=== PATIENT | female | born 1940 | race Caucasian/White ===

== ENCOUNTER → 2017-04-20 | Outpatient (CLI) | payer MEDICARE ==
[2014-09-04 14:49] VITALS: BP 125/73
[~2017-04-20] MED LIST: ALPR0.25 PO; ARFO15VI NEB; BUDESONIDE; CHOL10003 PO; FOLI1TAB16 PO; GUAI600T47 PO; METH2.5T PO; MONT10TA6 PO; ZITHROMAX; [UNRECOGNIZED DRUG - OTHER]
--- NOTE | 2017-04-20 13:48 | KCIC ---
EXAM: Cervical spine MRI without contrast. HISTORY: Neck pain. TECHNIQUE: Multiplanar, multisequence magnetic resonance imaging of the cervical spine was performed without contrast. COMPARISON: None. FINDINGS: There is mild anterolisthesis of C2 on C3, C4 on C5 and C7 on T1 and the upper thoracic vertebral levels. There is slight straightening of cervical lordosis. There is degenerative endplate remodeling with disc space narrowing and osteophytosis at all levels, primarily C5-C6. There are several endplate Schmorl's nodes. No suspicious osseous lesion is seen. There is no acute or subacute fracture. There is edema within the right C4-C5 facets, likely degenerative in etiology. No spinal cord lesion is seen. At C2-C3, there is a left posterior lateral predominant disc bulge and endplate remodeling. There is mild facet arthropathy. There is mild left foraminal stenosis. At C3-C4, there is a diffuse disc bulge and endplate osteophytosis. There is mild bilateral facet arthropathy. There is uncovertebral arthropathy. There is mild bilateral foraminal stenosis. At C4-C5, there is a disc bulge and endplate osteophytosis. There is mild right facet arthropathy. There is no stenosis. At C5-C6, there is a diffuse disc bulge and endplate osteophytosis. There is left greater than right uncovertebral arthropathy. There is moderate left foraminal stenosis. At C6-C7, there is a diffuse disc bulge and endplate osteophytosis. There is left greater than right uncovertebral arthropathy. There is severe left foraminal stenosis. IMPRESSION: 1. Multilevel degenerative change within the cervical spine, described in detail above. This results in mild left foraminal stenosis at C2-C3, mild bilateral foraminal stenosis at C3-C4, moderate left foraminal stenosis at C5-C6 and severe left foraminal stenosis at C6-C7. 2. Mild multilevel listhesis and slight reversal of cervical lordosis, described above. Electronically signed by: Jada Bell MD (04/20/2017 1:45 PM) [facility]1
--- NOTE | 2017-04-21 15:55 | KCIC ---
DATE: 04/20/2017 EXAM: MAMMO YAMILA SCREENING BILATERAL HISTORY: Asymptomatic screening mammogram. History of benign left breast biopsy in 2011. COMPARISON: Prior mammograms from 04/11/2016, 02/09/2015 and 02/07/2014 This study was interpreted with the benefit of Computerized Aided Detection (CAD). The breast parenchyma shows scattered fibroglandular densities. Breast parenchyma level B. FINDINGS: Bilateral CC and MLO views of the breasts were performed. Bilateral breast tomosynthesis was performed in CC and MLO projections. Right breast: There are no suspicious microcalcifications, masses or areas of architectural distortion. Left breast: There are no suspicious microcalcifications, masses or areas of architectural distortion. Findings are stable from prior mammogram. IMPRESSION: Negative bilateral 2D and 3-D mammogram. BI-RADS CATEGORY: 1 NEGATIVE RECOMMENDED FOLLOW-UP: 12M 12 MONTH FOLLOW-UP PQRS compliance statement: Patient information was entered into a reminder system with a target due date 04/20/2018 for the next mammogram. Mammography is a sensitive method for finding small breast cancers, but it does not detect them all and is not a substitute for careful clinical examination. A negative mammogram does not negate a clinically suspicious finding and should not result in delay in biopsying a clinically suspicious abnormality. "Our facility is accredited by the [employer] Mammography Program."
== END | disposition home or self-care (01) ==
LOC: KCIC MAMMO 12:06
PROVIDERS: ATTEND Family Medicine
DX: Z12.31 Encounter for screening mammogram for malignant neoplasm of breast (principal); M48.02 Spinal stenosis, cervical region; Z90.710 Acquired absence of both cervix and uterus; Z90.49 Acquired absence of other specified parts of digestive tract
CPT/HCPCS: 72141; 77063; G0202; 77067

== ENCOUNTER → 2017-06-15 | Outpatient (CLI) | payer MEDICARE ==
[2014-09-04 14:49] VITALS: BP 125/73
--- NOTE | 2017-06-15 14:52 | KCIC ---
MRI Brain without contrast History: Persistent vertigo, nausea Technique: Multiplanar, multisequential noncontrast MR imaging was performed of the brain. Contrast: None Comparison: None Findings: There is no evidence of recent infarct or cytotoxic edema. Ventricular size is proportionate to the sulcal spaces. There is mild supratentorial involutional change. There is no significant midline shift, intraaxial mass effect, or focal abnormal extra-axial fluid collection. There are a couple of tiny foci of T2 and FLAIR hyperintense abnormality of the supratentorial white matter bilaterally. There is no significant hemosiderin deposition of the brain parenchyma. There is preservation of the major intracranial flow-voids at the skull base. There is partially empty sella. The mastoid air cells are aerated. The cerebellar tonsils are normal in location. There is no significant abnormality of the pineal gland. There is mild bilateral ethmoid air cell and left maxillary sinus mucosal thickening. There is preserved marrow signal of the clivus. Impression: 1. There are a couple of tiny foci of nonspecific gliosis of the supratentorial parenchyma. There is mild supratentorial involutional change. Electronically signed by: Miguelangel Suazo MD (06/15/2017 2:48 PM) [facility]-KCIC1
== END | disposition home or self-care (01) ==
LOC: KCIC MRI 12:10
PROVIDERS: ATTEND Family Medicine
DX: G93.89 Other specified disorders of brain (principal); R42 Dizziness and giddiness; R11.0 Nausea
CPT/HCPCS: 70551

== ENCOUNTER → 2018-04-21 | Outpatient (CLI) | payer MEDICARE ==
[2018-01-15 11:00] VITALS: BP 120/61
[~2018-04-21] MED LIST changes: +ALBU2.5V5 NEB; +CETI10CA PO; +CHOL500016 PO; +MECL12.52 PO; +VENTOLIN HFA18 GM INH; +VITA400C36 PO
--- NOTE | 2018-04-22 18:02 | KCIC ---
Bilateral digital screening mammograms with 3D Tomosynthesis: Reason for examination: Routine screening. Comparison is made to previous studies dated 04/20/2017 and 04/11/2016. Bilateral mammograms in CC and oblique projections were obtained with 2-D imaging and 3-D tomosynthesis imaging on a Siemens Inspiration unit and reviewed on the workstation. Interpretation was made with the benefit of CAD. The skin and nipples show no abnormalities. No abnormal axillary lymph nodes are seen. The breast parenchyma shows scattered fibroglandular density. (Breast density: Category B.) There continue to be small nodular parenchymal densities at the posterior superior left breast probably at the 11:00 B position, at the 12:00 B position of the right breast and at the 10:00 B position of the right breast which are unchanged. There are no new dominant masses, suspicious calcifications or architectural distortions. Vascular calcifications are present bilaterally. Impression: No interval change in a small nodular densities seen bilaterally. No evidence of malignancy. Recommend routine screening. BI-RADS Category 2: Benign. "Our facility is accredited by the [employer] Mammography Program." This patient's information has been entered into a reminder system for the patient to be notified with the results of her examination and a target date for the next mammogram. Electronically signed by: Ana William MD (04/22/2018 6:00 PM) [id number]
== END | disposition home or self-care (01) ==
LOC: KCIC MAMMO 13:56
PROVIDERS: ATTEND Family Medicine
DX: Z12.31 Encounter for screening mammogram for malignant neoplasm of breast (principal)
CPT/HCPCS: 77063; 77067

== ENCOUNTER → 2018-06-25 | Outpatient (CLI) | payer MEDICARE ==
[2018-01-15 11:00] VITALS: BP 120/61
[~2018-06-25] MED LIST changes: +CONTRAST GIVEN. MC PRN; +IOHEXOL 300 MG/ML 100ML VIAL. IV ONE
--- NOTE | 2018-06-25 09:30 | KCIC ---
Examination: CT ANGIOGRAPHY CHEST History: Chest pain and tightness Comparison/Correlation: None Findings: Axial images of the chest were obtained without contrast. Sagittal and coronal reformatted images were divided. Exam was performed with pulmonary arteriography protocol. MIP images were provided. Pulmonary arterial vasculature is normal with no thromboembolic disease. Thoracic aorta is unremarkable although it is not as well opacified for purposes of this protocol. There are no suspicious findings of the thoracic aorta for the patient's age. Calcific involvement of the proximal left anterior descending and proximal circumflex coronary arteries is notable. There is no focal infiltrate. Linear scarring or atelectasis involving the right lower lobe is minimal. Calcification of the tracheal and bronchial sims noted. Fatty infiltration of the liver noted. Impression: No pulmonary arterial thromboembolic disease. No focal infiltrate. Electronically signed by: Shyam Tafoya MD (06/25/2018 9:26 AM) [id number]
== END | disposition home or self-care (01) ==
LOC: KCIC CT 08:32
PROVIDERS: ATTEND Family Medicine
DX: R07.89 Other chest pain (principal); K76.0 Fatty (change of) liver, not elsewhere classified
CPT/HCPCS: 71275; 82565; Q9967

== ENCOUNTER → 2018-07-26 | Outpatient (CLI) | payer MEDICARE ==
[2018-01-15 11:00] VITALS: BP 120/61
[~2018-07-26] MED LIST changes: -CONTRAST GIVEN. MC PRN; -IOHEXOL 300 MG/ML 100ML VIAL. IV ONE; +REGADENOSON 0.4 MG/5 ML DISP.SYRIN. IV ONE
--- NOTE | 2018-07-26 11:44 | CARD ---
MR#: [id number] Date of Study: 07/26/2018 Ordering Physician: MARILYNN PHIPPS, Referring Physician: MARILYNN PHIPPS Tech: Isadora Berrios RDCS APPROVED REPORT EXAM: Two-dimensional and M-mode echocardiogram with Doppler and color Doppler. Other Information Quality : Fair INDICATION Exertional Dyspnea 2D DIMENSIONS RVDd2.9 (2.9-3.5cm)Left Atrium(2D)2.7 (1.6-4.0cm) IVSd0.7 (0.7-1.1cm)Aortic Root(2D)3.3 (2.0-3.7cm) LVDd4.4 (3.9-5.9cm)LVOT Diameter2.0 (1.8-2.4cm) PWd0.8 (0.7-1.1cm)LVDs2.9 (2.5-4.0cm) FS (%) 33.9 %SV54.0 ml LVEF(%)63.1 (>50%) Aortic Valve AoV Peak Tico.137.5cm/sAoV VTI23.0cm AO Peak GR.7.6mmHgLVOT Peak Tico.129.6cm/s LVOT VTI 22.32cmAO Mean GR.5mmHg JANUARY (VMAX)3.29vn5AUS (VTI)3.12cm2 Mitral Valve MV E Liegypoi22.0cm/sMV DECEL YNHP797qj MV A Hgxszyrj365.6cm/sMV DSS600ob E/A Ratio0.5MVA (PHT)2.11cm2 TDI E/Lateral E'7.9E/Medial E'8.7 Tricuspid Valve TR P. Xmsruwwh816nt/sRAP HGZPZFAQ5zaZz TR Peak Gr.06mfXcXWFQ55mvQr Pulmonary Vein S1 Mfgsribb50.1cm/sD2 Jheiqbsn21.1cm/s LEFT VENTRICLE The left ventricle is normal size. There is normal left ventricular wall thickness. The left ventricu lar systolic function is normal and the ejection fraction is within normal range. The Ejection Fracti on is 60-65%. There is normal LV segmental wall motion. Transmitral Doppler flow pattern is Grade I-a bnormal relaxation pattern. RIGHT VENTRICLE The right ventricle is normal size. The right ventricular systolic function is normal. ATRIA The left atrium size is normal. The right atrium size is normal. The interatrial septum is intact wit h no evidence for an atrial septal defect or patent foramen ovale as noted on 2-D or Doppler imaging. AORTIC VALVE The aortic valve is calcified but opens well. Doppler and Color Flow revealed no significant aortic r egurgitation. There is no significant aortic valvular stenosis. MITRAL VALVE The mitral valve is calcified but opens well. Mitral annular calcification is mild. There is no evide nce of mitral valve prolapse. There is no mitral valve stenosis. Doppler and Color Flow revealed trac e mitral valve regurgitation. TRICUSPID VALVE The tricuspid valve is normal in structure and function. Doppler and Color Flow revealed mild tricusp id regurgitation. The PA pressure was estimated at 22 mmHg. There is no tricuspid valve stenosis. PULMONIC VALVE The pulmonic valve is not well visualized. Doppler and Color Flow revealed no pulmonic valvular regur gitation. There is no pulmonic valvular stenosis. GREAT VESSELS The aortic root is normal in size. The ascending aorta is normal in size. The IVC is normal in size a nd collapses >50% with inspiration. PERICARDIAL EFFUSION There is no evidence of significant pericardial effusion. Critical Notification Critical Value: No <Conclusion> The left ventricle is normal size. The left ventricular systolic function is normal and the ejection fraction is within normal range. The Ejection Fraction is 60-65%. There is no significant aortic valvular stenosis. Doppler and Color Flow revealed no significant aortic regurgitation. Doppler and Color Flow revealed trace mitral valve regurgitation. Doppler and Color Flow revealed mild tricuspid regurgitation. The PA pressure was estimated at 22 mmHg. Signed by : Ronald Mckay MD Electronically Approved : 07/26/2018 11:42:33
--- NOTE | 2018-07-26 14:18 | RAD ---
MR#: [id number] Date of Study: 07/26/2018 Ordering Physician: MARILYNN PHIPPS, Referring Physician: MARISELA WILKERSON Tech: ZAN Munroe, ARRT (R) (N) APPROVED REPORT Test Type: Pharmacological Stress Nurse/Tech: Shu Licona RN Test Indications: Previous pneumonia and EKG abnormalities Cardiac History: No known cardiac Medications: See Electronic Medical Record Medical History: See Electronic Medical Record Resting ECG: SB with BBB and PVCs Resting Heart Rate: 49 bpm Resting Blood Pressure: 135/82mmHg Pretest Chest Pain: No chest pain Nurse/Tech Notes S1,S2 and lungs are diminished throughout. Patient has history of asthma and stated she had pneumonia over lashanda. Consent: The procedure was explained to the patient in lay terms. Informed consent was witnessed. Jevon eout was entered into [employer]. History and Stress Test performed by RT Cheryl (R) (N) Pharm. Details Pharmacologic stress testing was performed using 0.4mg per 5ml of regadenoson given intravenously ove r 7-10 seconds. Stress Symptoms Nausea,Dizziness POST EXERCISE Reason for Termination: Infusion complete Target HR: Yes Max HR: 166 bpm Max Blood Pressure: 152/80mmHg Blood Pressure response to exercise: Normal blood pressure response during stress. Heart Rate response to exercise: WNL Chest Pain: No. Arrhythmia: Yes. PVCs ST Change: No. INTERPRETATION Stress EKG Conclusion: No evidence of stress induced EKG changes. Imaging Protocol IMAGE PROTOCOL: Rest Tc-99m/stress Tc-99m 1 day Rest: Stress: Viability: Radiopharm.Tc99m QbmbykdjaDc64s Sestamibi Dose10.2mCi 32.1mCi Img Date 07/26/2018 07/26/2018 Inj-Img Vltk73lfe. 60min. Rest Admin Site:IV - Right AntecubitalAdministrator:RT Hernan LunaR)(N) Stress Admin Site: IV - Right AntecubitalAdministrator: RT Pratik Lyles)(N) STRESS DATA End Diast. Vol.43.0mlAv. Heart Rate92.0bpm End Syst. Vol.6.0mlCO Index BSA0.0L/min Myocardial Mass88.0gEject. Qfsjvbdu93.0% Stress Rates Pk. Fill Rate4.22EDV/secLVtime Pk. Fill 151.38msec Pk. Empty Rate6.52ESV/secLVtime Pk. Fpbus611.67msec 1/3 Pk. Fill0.88EDV/sec Stress Scores Regional WT2.00Summed WT6.00 Regional WM0.00Summed WM0.00 The rest and stress images show normal perfusion, normal contraction and thickening. LV Perf. Quant 17 Seg. SSS0.00 17 Seg. SRS0.00 17 Seg. SDS0.00 Stress Defect Extent (% LAD)0.00Rest Defect Extent (% LAD)0.00Rev. Defect Extent (% LAD)0.00 Stress Defect Extent (% LCX) 0.00Rest Defect Extent (% LCX)0.00Rev. Defect Extent (% LCX)0.00 Stress Defect Extent (% RCA)0.00Rest Defect Extent (% RCA)0.00Rev. Defect Extent (% RCA)0.00 Stress Defect Extent (% JOURDAN)0.00Rest Defect Extent (% JOURDAN)0.00Rev. Defect Extent (% JOURDAN)0.00 Other Information Quality:Good Risk Assessment: Low Risk Conclusion 1. No evidence of EKG changes with stress testing. 2. Normal perfusion at stress/rest. 3. Low risk study. 4. EF > 60%. Signed by : [place], Electronically Approved : 07/26/2018 14:16:37
== END | disposition home or self-care (01) ==
LOC: NM 10:02
PROVIDERS: ATTEND Internal Medicine Cardiovascular Disease
DX: I36.1 Nonrheumatic tricuspid (valve) insufficiency (principal); J45.909 Unspecified asthma, uncomplicated; I49.3 Ventricular premature depolarization; R94.31 Abnormal electrocardiogram [ECG] [EKG]; R00.8 Other abnormalities of heart beat; Z87.01 Personal history of pneumonia (recurrent)
CPT/HCPCS: 78452; 93017; 93306; 96374; A9500; J2785

== ENCOUNTER → 2020-04-03 | Outpatient (CLI) | payer MEDICARE ==
[2019-07-12 10:38] VITALS: BP 154/92
[~2020-04-03] MED LIST changes: +ACET500T68 PO; +DOCU50CA11 PO; -MECL12.52 PO; +MECL12.573 PO; +MONT10TA49 PO; -MONT10TA6 PO; -REGADENOSON 0.4 MG/5 ML DISP.SYRIN. IV ONE; +VITA-8 PO; -VITA400C36 PO
--- NOTE | 2020-04-03 13:55 | KCIC ---
Indication: Postmenopausal screening for osteoporosis. COMPARISON: None available. Bone Density: -BMD: (g/cm2) - AP Spine Total (L1-L4)..........1.089. - Total left Hip.................0.795. T-Score: - AP Spine Total (L1-L4).........0.4. - Total left Hip.................-1.2. Z-Score: - AP Spine Total (L1-L4)..........3.1. - Total left Hip.................0.9. World Health Organization criteria for BMD interpretation classify patients as Normal (T-score at or above -1.0), Osteopenic (T-score between -1.0 and -2.5), or Osteoporotic (T-score at or below -2.5). Impression: 1. AP Spine Total L1-L4---normal. 2. Total left Hip---osteopenia. Electronically signed by: Alex Townsend MD (04/03/2020 1:52 PM) [id number]
== END ==
LOC: KCIC DEXA 10:54
PROVIDERS: ATTEND Family Medicine
DX: M85.88 Other specified disorders of bone density and structure, other site (principal); M85.9 Disorder of bone density and structure, unspecified
CPT/HCPCS: 77080

== ENCOUNTER → 2020-09-05 | Outpatient (CLI) | payer MEDICARE ==
[2019-07-12 10:38] VITALS: BP 154/92
[~2020-09-05] MED LIST changes: -MECL12.573 PO; +MECL12.582 PO
--- NOTE | 2020-09-05 13:52 | CARD ---
MR#: [id number] Date of Study: 09/05/2020 Ordering Physician: MARILYNN PHIPPS, Referring Physician: MARILYNN PHIPPS Tech: Isadora Berrios RDCS APPROVED REPORT EXAM: Two-dimensional and M-mode echocardiogram with Doppler and color Doppler. Other Information Quality : Fair INDICATION Dypnea on Exertion 2D DIMENSIONS RVDd2.3 (2.9-3.5cm)Left Atrium(2D)3.4 (1.6-4.0cm) IVSd0.7 (0.7-1.1cm)Aortic Root(2D)3.2 (2.0-3.7cm) LVDd4.6 (3.9-5.9cm)LVOT Diameter1.9 (1.8-2.4cm) PWd0.7 (0.7-1.1cm)LVDs2.3 (2.5-4.0cm) FS (%) 30.0 %SV78.0 ml LVEF(%)60.0 (>50%) Aortic Valve AoV Peak Tico.137.5cm/sAoV VTI22.6cm AO Peak GR.7.6mmHgLVOT Peak Tico.129.3cm/s AO Mean GR.4mmHgAVA (VMAX)2.67cm2 JANUARY (VTI)3.10cm2 Mitral Valve MV E Inqjznda09.7cm/sMV E Peak Gr.9mmHg MV DECEL [id number] A Tfajbtqk010.3cm/s MV E Mean Gr.4mmHgE/A Ratio0.6 Tricuspid Valve TR P. Vcqkdwrm761js/sRAP LEGPKCVZ2leWi TR Peak Gr.87pkRxQYWQ78pkCa Pulmonary Vein S1 Loefvgfq74.9cm/sD2 Inzrxzwp49.7cm/s LEFT VENTRICLE The left ventricle is normal size. There is normal left ventricular wall thickness. The left ventricu lar systolic function is normal and the ejection fraction is within normal range. The Ejection Fracti on is 55-60%. There is normal LV segmental wall motion. Transmitral Doppler flow pattern is Grade I-a bnormal relaxation pattern. RIGHT VENTRICLE The right ventricle is normal size. The right ventricular systolic function is normal. ATRIA The left atrium size is normal. The right atrium size is normal. The interatrial septum is intact wit h no evidence for an atrial septal defect or patent foramen ovale as noted on 2-D or Doppler imaging. AORTIC VALVE The aortic valve is calcified but opens well. Doppler and Color Flow revealed no significant aortic r egurgitation. There is no significant aortic valvular stenosis. MITRAL VALVE The mitral valve is calcified but opens well. There is no evidence of mitral valve prolapse. There is no mitral valve stenosis. Doppler and Color-flow revealed trace mitral regurgitation. TRICUSPID VALVE The tricuspid valve is normal in structure and function. Doppler and Color Flow revealed trace tricus pid regurgitation. The PA pressure was estimated at 25 mmHg. There is no tricuspid valve stenosis. PULMONIC VALVE The pulmonic valve is not well visualized. Doppler and Color Flow revealed trace pulmonic valvular re gurgitation. There is no pulmonic valvular stenosis. GREAT VESSELS The aortic root is normal in size. The ascending aorta is not well seen. The IVC is normal in size an d collapses >50% with inspiration. PERICARDIAL EFFUSION There is no evidence of significant pericardial effusion. Critical Notification Critical Value: No <Conclusion> The left ventricle is normal size. The left ventricular systolic function is normal and the ejection fraction is within normal range. The Ejection Fraction is 55-60%. Doppler and Color Flow revealed no significant aortic regurgitation. There is no significant aortic valvular stenosis. Doppler and Color-flow revealed trace mitral regurgitation. Doppler and Color Flow revealed trace tricuspid regurgitation. The PA pressure was estimated at 25 mmHg. Signed by : Ronald Mckay MD Electronically Approved : 09/05/2020 13:51:36
== END ==
LOC: ECHO 12:37
PROVIDERS: ATTEND Internal Medicine Cardiovascular Disease
DX: I08.0 Rheumatic disorders of both mitral and aortic valves (principal); R06.09 Other forms of dyspnea
CPT/HCPCS: 93306